=== PATIENT | male | born 1975 | race Caucasian/White ===

== ENCOUNTER → 2017-02-04 | Outpatient (CLI) | payer OTHER ==
[2017-02-04 10:22] LABS: BUN 12 mg/dL (7-18)
[2017-02-04 10:35] LABS: GFR (ESTIMATED) 74 ML/MIN (>60)
== END ==
LOC: LAB 08:44
PROVIDERS: Nurse Practitioner Family
DX: I10 Essential (primary) hypertension (principal); E78.1 Pure hyperglyceridemia; E55.9 Vitamin D deficiency, unspecified

== ENCOUNTER → 2017-02-23 | Outpatient (CLI) | payer OTHER | LOC: SL 15:23 | DX: G47.33 Obstructive sleep apnea (adult) (pediatric) (principal) ==